=== PATIENT | male | born 1950 | race American Indian/Alaskan Native ===

== ENCOUNTER 2022-07-07 07:47 | Day surgery (SDC) | payer OTHER ==
[2022-07-06 14:18] VITALS: BMI 23.6
[2022-07-07 09:15] VITALS: PULSE 68; RESP 14; TEMP 97.1
[2022-07-07 09:47] VITALS: BP 91/58
== END 2022-07-07 09:48 | disposition home or self-care (01) ==
LOC: FASU-ENDO 07:47
PROVIDERS: ATTEND Internal Medicine Gastroenterology
PROC: 0DBL8ZX Excision of Transverse Colon, Via Natural or Artificial Opening Endoscopic, Diagnostic (ICD-10-PCS; principal; 2022-07-07 08:31)
DX: Z12.11 Encounter for screening for malignant neoplasm of colon (principal); K63.5 Polyp of colon; K64.0 First degree hemorrhoids
CPT/HCPCS: 82962; 88305-TC